=== PATIENT | male | born 1980 | race Two or more races ===

== ENCOUNTER 2018-06-28 14:22 | Emergency (ER) | payer OTHER ==
[~2018-06-28] VITALS: Ht 165.1 cm; Wt 65.8 kg
[2018-06-28 15:01] VITALS: BP 145/74
[2018-06-28] MEDS ORDERED: ACETAMINOPHEN 325 MG TABLET PO ONE (15:30)
[2018-06-28] MEDS ORDERED: TDAP [DIPH/PERTUSSIS/TET] 0.5 ML VIAL IM ONE ×2 (15:30→15:41)
[2018-06-28] MEDS ORDERED: ACETAMINOPHEN ES 500 MG TABLET ONE (15:41)
== END 2018-06-28 16:06 | disposition home or self-care (01) ==
LOC: ER 14:24
DX: S01.81XA Laceration without foreign body of other part of head, initial encounter (principal); W22.8XXA Striking against or struck by other objects, initial encounter; Y93.89 Activity, other specified; Y92.89 Other specified places as the place of occurrence of the external cause; Y99.8 Other external cause status
CPT/HCPCS: 90471; 90715; 99283; A4606; A6402; Z7610